=== PATIENT | female | born 1975 | race Caucasian/White ===

== ENCOUNTER 2017-01-16 06:11 | Emergency (ER) | payer MEDICAID ==
--- NOTE | 2017-01-16 06:45 | EDM.PDOC ---
ED HPI GENERAL MEDICAL PROBLEM - General Chief Complaint: Syncope Stated Complaint: PASS OUT AND LT ARM TINGILING Time Seen by Provider: 01/16/17 06:30 Source of Information: Reports: Patient History Limitations: Reports: No Limitations - History of Present Illness INITIAL COMMENTS - FREE TEXT/NARRATIVE: 41 yo female passed out upon arrival at the gym today just a little after 3 am. May have been out for a few hrs. Does not think she fell asleep. Only gets 5 hrs of sleep most nights. Has had some mild diarrhea for the past couple of days. Had not started her work out yet today. Runs for up to 2.5 hrs on a treadmill daily. Slight weight loss recently. No hx of syncope. Had light headedness ? for a few minutes along with some left sided numbness and mild L sided chest pain before passing out. Was not aware of tachycardia or bradycardia. No hx of seizures. No FHx of cardiac dz. 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: Other (see below) (none) - Related Data Allergies Allergy/AdvReac Type Severity Reaction Status Date / Time No Known Allergies Allergy Verified 01/16/17 06:36 Home Meds: Home Meds Clobetasol [Clobetasol Propionate 0.05%] 30 gm TOP BID #1 tube 05/27/15 [Rx] Escitalopram [Lexapro] 20 mg PO DAILY 01/16/17 [History] Temazepam [Restoril] 30 mg PO BEDTIME 01/16/17 [History] atoMOXetine [Strattera] 60 mg PO DAILY 01/16/17 [History] Past Medical History - Past Health History Medical/Surgical History: Denies Medical/Surgical History Psychiatric History: Reports: Anxiety, Depression Social & Family History - Tobacco Use Smoking Status *Q: Never Smoker - Caffeine Use Caffeine Use: Reports: None - Recreational Drug Use Recreational Drug Use: No ED ROS GENERAL - Review of Systems Review Of Systems: See Below Constitutional: Reports: No Symptoms. Denies: Fever, Diaphoresis HEENT: Reports: No Symptoms Respiratory: Reports: No Symptoms Cardiovascular: Reports: Chest Pain (mild and transient before passing out.), Lightheadedness (preceding her syncope by a couple minutes.) Endocrine: Reports: No Symptoms GI/Abdominal: Reports: Diarrhea (mild x 2 days) : Reports: No Symptoms Musculoskeletal: Reports: No Symptoms Skin: Reports: No Symptoms Neurological: Reports: Numbness (L arm and L leg before her syncopal spell.), Syncope. Denies: Confusion, Seizure Psychiatric: Reports: No Symptoms Hematologic/Lymphatic: Reports: No Symptoms - Physical Exam Exam: See Below Exam Limited By: No Limitations General Appearance: Alert, WD/WN, No Apparent Distress Eye Exam: Bilateral Eye: Normal Inspection, PERRL Ears: Normal External Exam, Normal Canal, Hearing Grossly Normal Nose: Normal Inspection, Normal Mucosa, No Blood Throat/Mouth: Normal Inspection, Normal Lips, Normal Teeth, Normal Oropharynx, Normal Voice, No Airway Compromise Head Exam: Atraumatic, Normocephalic Neck: Normal Inspection, Supple, Non-Tender Respiratory/Chest: No Respiratory Distress, Lungs Clear, Normal Breath Sounds, No Accessory Muscle Use Cardiovascular: Regular Rate, Rhythm, No Edema GI/Abdominal: Soft, Non-Tender Neuro Exam (Abbreviated): Alert, Oriented, CN II-XII Intact, Normal Cognition, Normal Gait, No Motor/Sensory Deficits Back Exam: Normal Inspection Extremities: Normal Inspection, Normal Range of Motion, Non-Tender, No Pedal Edema Psychiatric: Normal Affect, Normal Mood Skin Exam: Warm, Dry, Intact, Normal Color, No Rash EKG INTERPRETATION EKG Date: 01/16/17 Time: 06:50 Rhythm: NSR Rate (Beats/Min): 61 [place]: Normal P-Wave: Present QRS: Normal ST-T: Normal QT: Normal Comparison: NA - No Prior EKG EKG Interpretation Comments: LVH noted. Course - Vital Signs Text/Narrative:: Orthostatic vitals-normal Last Recorded V/S: Last Vital Signs Temp 36.9 C 01/16/17 06:15 Pulse 65 01/16/17 06:15 Resp 18 01/16/17 07:12 BP 108/67 01/16/17 07:12 Pulse Ox 100 01/16/17 07:12 Orthostatic Blood Pressure [ 116/81 Standing] Orthostatic Blood Pressure [ 127/73 Sitting] Orthostatic Blood Pressure [ 118/70 Supine] - Orders/Labs/Meds Orders: Active Orders 24 hr Category Date Time Status Cardiac Monitoring [RC] .As Directed Care 01/16/17 06:39 Active EKG Documentation Completion [RC] ASDIRECTED Care 01/16/17 06:40 Active Orthostatic Vital Signs [RC] ASDIRECTED Care 01/16/17 06:27 Active TROPONIN I [CHEM] Stat Lab 01/16/17 06:42 Received EKG 12 Lead [EK] Routine Ther 01/16/17 06:40 Ordered Labs: Laboratory Tests 01/16/17 01/16/17 01/16/17 Range/Units 06:42 06:42 06:42 WBC 4.7 (4.5-12.0) X10-3/uL RBC 4.78 (3.23-5.20) x10(6)uL Hgb 15.1 (11.5-15.5) g/dL Hct 44.5 (30.0-51.3) % MCV 93.2 (80-96) fL MCH 31.6 (27.7-33.6) pg MCHC 33.9 (32.2-35.4) g/dL RDW 11.8 (11.5-15.5) % Plt Count 250 (125-369) X10(3)uL Sodium 139 (135-145) mmol/L Potassium 4.3 (3.5-5.3) mmol/L Chloride 105 (100-110) mmol/L Carbon Dioxide 28 (23-29) mmol/L BUN 23 H D (5-20) mg/dL Creatinine 0.7 (0.6-1.3) mg/dL Est Cr Clr Drug Dosing 93.17 mL/min Estimated GFR (MDRD) > 60 (>60) BUN/Creatinine Ratio 32.9 H (9-20) Glucose 114 (80-116) mg/dL Calcium 9.6 (8.6-10.2) mg/dL Magnesium 1.9 (1.8-2.5) mg/dL Urine Color (YELLOW) Urine Appearance (CLEAR) Urine pH (5.0-6.5) Ur Specific [place] (1.010-1.025) Urine Protein (NEGATIVE) mg/dL Urine Glucose (UA) (NEGATIVE) mg/dL Urine Ketones (NEGATIVE) mg/dL Urine Occult Blood (NEGATIVE) Urine Nitrite (NEGATIVE) Urine Bilirubin (NEGATIVE) Urine Urobilinogen (NEGATIVE) mg/dL Ur Leukocyte Esterase (NEGATIVE) Urine RBC (0) Urine WBC (0) Ur Squamous Epith Cells (NS,R,O) Urine Bacteria (NS) 01/16/17 Range/Units 06:48 WBC (4.5-12.0) X10-3/uL RBC (3.23-5.20) x10(6)uL Hgb (11.5-15.5) g/dL Hct (30.0-51.3) % MCV (80-96) fL MCH (27.7-33.6) pg MCHC (32.2-35.4) g/dL RDW (11.5-15.5) % Plt Count (125-369) X10(3)uL Sodium (135-145) mmol/L Potassium (3.5-5.3) mmol/L Chloride (100-110) mmol/L Carbon Dioxide (23-29) mmol/L BUN (5-20) mg/dL Creatinine (0.6-1.3) mg/dL Est Cr Clr Drug Dosing mL/min Estimated GFR (MDRD) (>60) BUN/Creatinine Ratio (9-20) Glucose (80-116) mg/dL Calcium (8.6-10.2) mg/dL Magnesium (1.8-2.5) mg/dL Urine Color Yellow (YELLOW) Urine Appearance Clear (CLEAR) Urine pH 6.0 (5.0-6.5) Ur Specific [place] 1.020 (1.010-1.025) Urine Protein Negative (NEGATIVE) mg/dL Urine Glucose (UA) Normal (NEGATIVE) mg/dL Urine Ketones Negative (NEGATIVE) mg/dL Urine Occult Blood Moderate H (NEGATIVE) Urine Nitrite Negative (NEGATIVE) Urine Bilirubin Negative (NEGATIVE) Urine Urobilinogen Normal (NEGATIVE) mg/dL Ur Leukocyte Esterase Negative (NEGATIVE) Urine RBC 0-5 (0) Urine WBC 0-5 (0) Ur Squamous Epith Cells Occasional (NS,R,O) Urine Bacteria Few H (NS) Departure - Departure Time of Disposition: 07:40 Disposition: Home, Self-Care 01 Condition: Good Clinical Impression: Syncope Qualifiers: Syncope type: unspecified Qualified Code(s): R55 - Syncope and collapse - Discharge Information Forms: ED Department Discharge - My Orders Last 24 Hours: My Active Orders 01/16/17 06:27 Orthostatic Vital Signs [RC] ASDIRECTED 01/16/17 06:39 Cardiac Monitoring [RC] .As Directed 01/16/17 06:40 EKG Documentation Completion [RC] ASDIRECTED EKG 12 Lead [EK] Routine 01/16/17 06:42 TROPONIN I [CHEM] Stat - Assessment/Plan Last 24 Hours: My Active Orders 01/16/17 06:27 Orthostatic Vital Signs [RC] ASDIRECTED 01/16/17 06:39 Cardiac Monitoring [RC] .As Directed 01/16/17 06:40 EKG Documentation Completion [RC] ASDIRECTED EKG 12 Lead [EK] Routine 01/16/17 06:42 TROPONIN I [CHEM] Stat
[2017-01-16 07:54] VITALS: BP 132/78
== END 2017-01-16 07:55 | disposition home or self-care (01) ==
LOC: FB.ED 06:11
DX: R55 Syncope and collapse (principal); F32.9 Major depressive disorder, single episode, unspecified; F41.9 Anxiety disorder, unspecified; Z79.899 Other long term (current) drug therapy
CPT/HCPCS: 36415; 80048; 81001; 83735; 84484; 85027; 93005; 99284

== ENCOUNTER 2020-04-24 20:57 | Emergency (ER) | payer MEDICAID ==
--- NOTE | 2020-04-24 21:12 | EDM.PDOC ---
ED HPI GENERAL MEDICAL PROBLEM - General Stated Complaint: INTOXICATION Time Seen by Provider: 04/24/20 21:11 Source of Information: Reports: Patient, EMS, Significant Other History Limitations: Reports: Intoxication - History of Present Illness INITIAL COMMENTS - FREE TEXT/NARRATIVE: 44-year-old female who reports that she was at a bar and at a wake for her recently friend and she had been drinking alcohol and according to the patient's , the patient had been drinking shots of alcohol and more than she would normally consume and she appeared to be doing okay and she stood up she seemed comfortable he caught her and helped her down to the floor and she was responsive at this time. There was no seizure activity. It was some concern about her breathing but she maintained good skin coloration and and she fell to verbal or responsive aftera period of time, they called 911 and ambulance arrived. The ambulance found the patient to be responsive to stimuli and was breathing. Her blood pressure and pulse were normal. Her glucose was [address] in to the emergency department she began to awaken and respond more. She did report that she was nauseated but had no emesis. She is denying any pain. She rates her pain as a 0/10. Her arrives and by the time I am in to see the patient, the patient is awake, alert and verbally responsive. She still has some mild nausea but has had no emesis. No difficulty breathing. No chest pain. According to the , the patient has been drinking more recently that she has in the past. There were no coingestants. No drug use tonight. There are no other associated signs or symptoms. There are no other modifying factors. Onset: Today (Tonight approximately 30 minutes prior to arrival) Duration: Improving (The patient is having improving mental status over time.) Location: Reports: Other (No pain.) Quality: Reports: Other (Not applicable.) Improves with: Reports: None Worsens with: Reports: None Context: Reports: Other (As above.) Associated Symptoms: Reports: No Other Symptoms Treatments APPLICATIONS SUPPORT LEAD: Reports: Other (see below) (Nothing.) - Related Data Allergies Allergy/AdvReac Type Severity Reaction Status Date / Time No Known Allergies Allergy Verified 01/16/17 06:36 Home Meds: Home Meds Clobetasol [Clobetasol Propionate 0.05%] 30 gm TOP BID #1 tube 05/27/15 [Rx] Escitalopram [Lexapro] 20 mg PO DAILY 01/16/17 [History] Temazepam [Restoril] 30 mg PO BEDTIME 01/16/17 [History] atoMOXetine [Strattera] 60 mg PO DAILY 01/16/17 [History] Past Medical History Psychiatric History: Reports: Anxiety, Depression - Past Surgical History HEENT Surgical History: Reports: Oral Surgery ([place] teeth extraction) GI Surgical History: Reports: Appendectomy Social & Family History - Tobacco Use Tobacco Use Status *Q: Current Every Day Tobacco User - Caffeine Use Caffeine Use: Reports: None - Alcohol Use Alcohol Use History: Yes Alcohol Use Frequency: Weekly - Living Situation & Occupation Living situation: Reports: 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 Denies: Vomiting : Reports: No Symptoms Musculoskeletal: Reports: No Symptoms Skin: Reports: No Symptoms Neurological: Reports: No Symptoms Psychiatric: Reports: Depression. Denies: Homicidal Ideation, Suicidal Ideation Hematologic/Lymphatic: Reports: No Symptoms Immunologic: Reports: No Symptoms - Physical Exam Exam: See Below Exam Limited By: No Limitations General Appearance: Alert, WD/WN, Lethargic (But begins to awaken in the emergency department and is progressively becoming more awake and she is oriented 3.) Eye Exam: Bilateral Eye: EOMI (There is lateral gaze nystagmus at less than 45.), Normal Inspection (Sclera are anicteric.) Ears: Normal External Exam, Hearing Grossly Normal Nose: Normal Inspection, Normal Mucosa, No Blood Throat/Mouth: Normal Inspection, Normal Lips, Normal Voice, No Airway Compromise Head Exam: Atraumatic, Normocephalic Neck: Normal Inspection, Supple, Non-Tender, Full Range of Motion Respiratory/Chest: No Respiratory Distress, Lungs Clear, Normal Breath Sounds, No Accessory Muscle Use, Chest Non-Tender Cardiovascular: Normal Peripheral Pulses, Regular Rate, Rhythm, No Murmur GI/Abdominal: Normal Bowel Sounds, Soft, Non-Tender, No Mass Neuro Exam (Abbreviated): Alert, Oriented, CN II-XII Intact, Normal Cognition, Normal Gait Back Exam: Normal Inspection, Full Range of Motion Extremities: Normal Inspection, Normal Range of Motion, Non-Tender, No Pedal Edema, Normal Capillary Refill Psychiatric: Depressed Mood (She denies any suicidal or homicidal ideation.) Skin Exam: Warm, Intact, Normal Color, No Rash Course - Vital Signs Last Recorded V/S: Last Vital Signs Temp Pulse 73 04/24/20 21:21 Resp 14 04/24/20 21:21 BP 124/50 L 04/24/20 21:21 Pulse Ox 97 04/24/20 21:21 - Orders/Labs/Meds Orders: Active Orders 24 hr Category Date Time Status DRUG SCREEN, URINE ALERE [URCHEM] Stat Lab 04/24/20 21:10 Ordered Labs: Laboratory Tests 04/24/20 04/24/20 04/24/20 Range/Units 21:38 21:38 21:38 WBC 6.5 (4.5-12.0) X10-3/uL RBC 5.23 H (3.23-5.20) x10(6)uL Hgb 16.9 H (11.5-15.5) g/dL Hct 49.9 (30.0-51.3) % MCV 95.5 (80-96) fL MCH 32.3 (27.7-33.6) pg MCHC 33.8 (32.2-35.4) g/dL RDW 11.0 L (11.5-15.5) % Plt Count 298 (125-369) X10(3)uL MPV 6.1 L (7.4-10.4) fL Neut % (Auto) 36.6 L (46-82) % Lymph % (Auto) 51.0 H (13-37) % [place] % (Auto) 10.7 (4-12) % Eos % (Auto) 2 (1.0-5.0) % Baso % (Auto) 0 (0-2) % Neut # (Auto) 2.4 (1.6-8.3) # Lymph # (Auto) 3.3 (0.6-5.0) # [place] # (Auto) 0.7 (0.0-1.3) # Eos # (Auto) 0.1 (0.0-0.8) # Baso # (Auto) 0.0 (0.0-0.2) # Sodium 142 (135-145) mmol/L Potassium 4.1 (3.5-5.3) mmol/L Chloride 103 (100-110) mmol/L Carbon Dioxide 30 (21-32) mmol/L BUN 12 (7-18) mg/dL Creatinine 0.9 (0.55-1.02) mg/dL Est Cr Clr Drug Dosing 73.27 mL/min Estimated GFR (MDRD) > 60 (>60) BUN/Creatinine Ratio 13.3 (9-20) Glucose 90 (80-116) mg/dL Calcium 8.7 (8.6-10.2) mg/dL Magnesium 2.3 (1.8-2.5) mg/dL Total Bilirubin 0.5 (0.1-1.3) mg/dL AST 45 H (5-25) IU/L ALT 47 H (12-36) U/L Alkaline Phosphatase 39 L (56-112) IU/L Total Protein 7.3 (6.0-8.0) g/dL Albumin 3.7 (3.5-5.2) g/dL Globulin 3.6 g/dL Albumin/Globulin Ratio 1.0 Ethyl Alcohol 0.22 H* (<0.03) % Meds: Medications Discontinued Medications Generic Name Dose Route Start Last Admin Trade Name Candice PRN Reason Stop Dose Admin Ondansetron HCl 4 mg 04/24/20 21:48 04/24/20 21:54 Zofran Odt PO 04/24/20 21:49 4 mg ONETIME ONE Administration - Re-Assessments/Exams Free Text/Narrative Re-Assessment/Exam: 04/24/20 22:25: Patient's blood tests are reassuringly normal except for a blood alcohol of 220 mg/dL and some mild LFT abnormalities that are somewhat concerning for obtained related liver disease. She has been awake and alert in the emergency department and is appropriately responsive with her . She reports that her nausea has resolved and she has been taking ice without any problems. She has remained vitally stable. She feels ready for discharge and her is feeling comfortable and willing to take her home and watch her tonight. I did discuss with the patient that she appears to be having some problems with alcohol and that it is affecting her health and she should that her decreasing her alcohol or stop drinking alcohol entirely. She is to increase her fluid intake. She is to rest. She should follow-up with her primary provider. Precautions and reasons for return to the emergency department were discussed with the patient and the patient's while the patient was in the emergency department ever detailed in the patient's discharge instructions. Departure - Departure Time of Disposition: 22:40 Disposition: Home, Self-Care 01 Condition: Good (Improved) Clinical Impression: Alcoholic liver disease Acute alcohol intoxication Qualifiers: Complication of substance-induced condition: uncomplicated Qualified Code(s): F10.920 - Alcohol use, unspecified with intoxication, uncomplicated - Discharge Information Instructions: Alcoholic Liver Disease, [id number], Alcohol Intoxication, [id number] Referrals: PCP,None [Primary Care Provider] - Forms: ED Department Discharge Additional Instructions: Your blood alcohol was 220 mg/dL. This is about 3 times the legal limit. You did have some mild elevation in your liver tests that is concerning for alcohol related liver disease. You appear to be having some problems with alcohol use and even problems that are affecting your physical health. I strongly suggest that you significantly decrease your alcohol use or stop drinking alcohol altogether. Follow-up with your primary doctor. Back to the emergency department for unrelenting vomiting, trouble breathing or any other concerning sign or symptom. Sepsis Event Note (ED) - Focused Exam Vital Signs: Vital Signs Pulse Resp BP Pulse Ox 04/24/20 21:21 73 14 124/50 L 97 - My Orders Last 24 Hours: My Active Orders 04/24/20 21:10 DRUG SCREEN, URINE ALERE [URCHEM] Stat - Assessment/Plan Last 24 Hours: My Active Orders 04/24/20 21:10 DRUG SCREEN, URINE ALERE [URCHEM] Stat
[2020-04-24] MEDS ORDERED: Ondansetron 4 MG Tab.DIS PO ONE (21:48)
[2020-04-26 03:41] VITALS: BP 129/59; PULSE 73
== END 2020-04-24 22:55 | disposition home or self-care (01) ==
LOC: FB.ED 20:57
DX: K70.9 Alcoholic liver disease, unspecified (principal); F10.120 Alcohol abuse with intoxication, uncomplicated; F41.9 Anxiety disorder, unspecified; F32.9 Major depressive disorder, single episode, unspecified; H55.00 Unspecified nystagmus; F17.200 Nicotine dependence, unspecified, uncomplicated; Y90.8 Blood alcohol level of 240 mg/100 ml or more; Z79.899 Other long term (current) drug therapy
CPT/HCPCS: 36415; 80053; 80307; 83735; 85025; 99284; A9270-GY